=== PATIENT | male | born 1975 | race Two or more races ===

== ENCOUNTER 2016-12-21 09:45 | Emergency (ER) | payer SELFPAY ==
[~2016-12-21] VITALS: Wt 82.0 kg
[2016-12-21] MEDS ORDERED: DEXAMETHASONE 10 MG/ML 1 ML INJ IM STA (10:55)
[2016-12-21] MEDS ORDERED: ALBUTEROL 0.5% (NEB) 2.5 MG/0.5 ML AMP NEB STA (10:55)
[2016-12-21] MEDS ORDERED: BENZ100C70 PO (11:05)
[2016-12-21] MEDS ORDERED: ALBU8.5H3 INH (11:05)
[2016-12-21] MEDS ORDERED: IBUPROFEN 600 MG TAB PO ONE (11:30)
[2016-12-21 12:41] VITALS: BP 118/76; PULSE 82; RESP 22; TEMP 98.4
--- NOTE | 2016-12-21 13:09 | ERD ---
ER Documentation Chief Complaint Date/Time DATE: 12/21/16 TIME: 13:00 Chief Complaint COUGH AND WHEEZING FOR 2 WKS. MILD DISTRESS. NO FEVERS NOTED HPI Patient is 41-year-old male with no significant medical history complaining of cough and wheezing 2 weeks. Patient is taking prednisone and pro-air without benefits. Denies any fever, nausea, vomiting, headache, vision or hearing problems, drooling, chest pain, shortness of breath. Patient is requesting for a steroid shot and stated that it helped him when he went to ED. Patient has cough productive cough with green colored sputum. Denies night sweats, weakness , paresis or paresthesia. Patient denies smoking but is exposed to secondhand smoke at work. ROS All systems reviewed and are negative except as per history of present illness. Medications Home Meds Active Scripts Benzonatate* (Tessalon Perle*) 100 Mg Capsule, 100 MG PO Q8H Y for COUGH, #30 CAP Prov:MOLLY RUANO 12/21/16 Albuterol Sulfate* (Proair HFA*) 8.5 Gm Hfa.aer.ad, 2 PUFF INH Q4H Y for WHEEZING AND SOB, #1 INHALER Prov:MOLLY RUANO 12/21/16 Allergies Allergies: Coded Allergies: No Known Drug Allergies (Verified Allergy, Unknown, 12/21/16) PMhx/Soc History of Surgery: Yes (appy, hernia, PFO closure) Anesthesia Reaction: No Hx Neurological Disorder: No Hx Respiratory Disorders: No Hx Cardiac Disorders: No Hx Psychiatric Problems: No Hx Miscellaneous Medical Probl: No Hx Alcohol Use: No Hx Substance Use: No Hx Tobacco Use: No Physical Exam Vitals Vital Signs Date Time Temp Pulse Resp B/P Pulse Ox O2 Delivery O2 Flow Rate FiO2 12/21/16 12:41 98.4 82 22 118/76 97 12/21/16 11:55 67 20 97 21 12/21/16 09:52 98.4 83 22 115/63 97 Physical Exam Physical Exam CONST: Well-developed, well-nourished, in no acute distress. HEENT: Atraumatic. Normal Conjunctiva. EOM intact. TM intact. External ear is normal. Clear oropharnyx without erythema. Moist mucous membranes. Supple. Full range of motion. No meningismus. No submandibular induration. RESP: Bilateral expiratory wheezing. No accessory muscle use. CARDIO: Regular rate and rhythm, no murmurs ABD: Soft, non tender, non distended. Normal bowel sounds. No McBurney's point tenderness. No guarding or rigidity. No peritoneal signs. SKIN: No petechiae or rashes BACK: No midline or flank tenderness EXT: No cyanosis or edema. Distal pulses equal and bilateral NEURO: Awake and alert, appropriate for age Results 24 hrs Current Medications Medications (Trade) Dose Ordered Sig/Will Route PRN Reason Start Time Stop Time Status Last Admin Dose Admin Albuterol (Proventil 0.5% (Neb)) 5 mg ONCE STAT NEB 12/21/16 10:55 12/21/16 10:59 DC 12/21/16 11:51 Dexamethasone (Decadron) 10 mg ONCE STAT IM 12/21/16 10:55 12/21/16 10:59 DC 12/21/16 11:04 Ibuprofen (Motrin) 600 mg ONCE ONCE PO 12/21/16 11:30 12/21/16 11:33 DC Procedures/MDM EMERGENCY DEPARTMENT COURSE/MEDICAL DECISION MAKING This is a 41-year-old male who comes to the emergency room secondary to complaints of cough and wheezing 2 weeks. Denies fever, shortness of breath, chest pain, nausea, headache, vision or hearing problems, drooling, dysphagia. Patient denies history of asthma and symptoms reoccurs seasonally. The patient was given dexamethasone IM and albuterol inhaler in the department. On re-evaluation, bilateral wheezing has improved. Vital signs are stable. My primary diagnosis is upper respiratory infection. Secondary diagnosis is Differential diagnoses considered, included but not limited to asthma, influenza , pneumonia, bronchitis, COPD, AK, otitis media, otitis externa, croup, epiglottitis, pharyngitis, tonsillitis. I have discussed the diagnosis with the patient and answered any questions or concerns. The patient was discharged for outpatient management with a prescription for ProAir air and Tessalon. The patient was advised to followup with their PMD in 1 -2 days and to return to the Emergency Department if there are any new or worsening symptoms. The patient understood and agreed with the diagnosis, treatment and plan. The patient is stable for discharge at this time. Departure Diagnosis: Primary Impression: URI, acute Additional Impression: Wheezing Condition: Good Patient Instructions: Uri, Viral W/ Wheezing (Adult) Referrals: COUNT INCLUDES THE [facility] YOU HAVE RECEIVED A MEDICAL SCREENING EXAM AND THE RESULTS INDICATE THAT YOU DO NOT HAVE A CONDITION THAT REQUIRES URGENT TREATMENT IN THE EMERGENCY DEPARTMENT. FURTHER EVALUATION AND TREATMENT OF YOUR CONDITION CAN WAIT UNTIL YOU ARE SEEN IN YOUR DOCTORS OFFICE WITHIN THE NEXT 1-2 DAYS. IT IS YOUR RESPONSIBILITY TO MAKE AN APPOINTMENT FOR FOLOW-UP CARE. IF YOU HAVE A PRIMARY DOCTOR --you should call your primary doctor and schedule an appointment IF YOU DO NOT HAVE A PRIMARY DOCTOR YOU CAN CALL OUR PHYSICIAN REFERRAL HOTLINE AT IF YOU CAN NOT AFFORD TO SEE A PHYSICIAN YOU CAN CHOSE FROM THE FOLLOWING [facility] [address] [facility] [address] [facility] [facility] [address] [facility] [address] [facility] [facility] [facility] [address] [facility]. [facility]. [address] [facility]. [facility] YOU HAVE RECEIVED A MEDICAL SCREENING EXAM AND THE RESULTS INDICATE THAT YOU DO NOT HAVE A CONDITION THAT REQUIRES URGENT TREATMENT IN THE EMERGENCY DEPARTMENT. FURTHER EVALUATION AND TREATMENT OF YOUR CONDITION CAN WAIT UNTIL YOU ARE SEEN IN YOUR DOCTORS OFFICE WITHIN THE NEXT 1-2 DAYS. IT IS YOUR RESPONSIBILITY TO MAKE AN APPOINTMENT FOR FOLOW-UP CARE. IF YOU HAVE A PRIMARY DOCTOR --you should call your primary doctor and schedule and appointment IF YOU DO NOT HAVE A PRIMARY DOCTOR YOU CAN CALL OUR PHYSICIAN REFERRAL HOTLINE AT . IF YOU CAN NOT AFFORD TO SEE A PHYSICIAN YOU CAN CHOSE FROM THE FOLLOWING [facility]: [facility] [address] [place] [address] [facility] [address] [place] [address] [facility] [address] [place] [address] Additional Instructions: Follow-up with your primary care physician in 1-2 days. Return to the emergency department immediately should you have any new or worsening symptoms, uncontrolled fevers, or other unexplained symptoms. Take all medications as directed. MOLLY RUANO Dec 21, 2016 13:09
== END 2016-12-21 12:43 | disposition home or self-care (01) ==
LOC: FTE 09:45
DX: J06.9 Acute upper respiratory infection, unspecified (principal)
CPT/HCPCS: 94664; 96372; 99284; J1100